=== PATIENT | female | born 1960 | race Caucasian/White ===

== ENCOUNTER 2017-03-21 12:43 | Emergency (ER) | payer OTHER ==
[2017-03-21 13:10] VITALS: BP 112/50
== END 2017-03-21 15:06 | disposition home or self-care (01) ==
LOC: ED 12:43
DX: M75.91 Shoulder lesion, unspecified, right shoulder (principal); M19.90 Unspecified osteoarthritis, unspecified site
CPT/HCPCS: J1885; Q0092